=== PATIENT | male | born 1955 | race Caucasian/White ===

== ENCOUNTER 2019-02-13 20:20 | Emergency (ER) | payer MEDICAID ==
[~2019-02-13] VITALS: Ht 188 cm; Wt 108.9 kg
[2019-02-13] MEDS ORDERED: Keflex500 MG PO (21:17)
== END 2019-02-13 21:39 | disposition home or self-care (01) ==
LOC: ER 20:20
DX: S63.283A Dislocation of proximal interphalangeal joint of left middle finger, initial encounter (principal); S80.02XA Contusion of left knee, initial encounter; F17.200 Nicotine dependence, unspecified, uncomplicated; W01.0XXA Fall on same level from slipping, tripping and stumbling without subsequent striking against object, initial encounter
CPT/HCPCS: 26770; 73130; 99283-25

== ENCOUNTER 2020-07-21 11:25 | Inpatient (IN) | payer OTHER, MEDICARE ==
[~2020-07-21] VITALS: Ht 188 cm; Wt 85.0 kg
[~2020-07-21 11:25] MED LIST: Keflex500 MG PO
[2020-07-21 12:17] LABS: BASOPHILS ABSOLUTE AUTO 0.02 K/mm3 (0.00-0.23); BASOPHILS PERCENT AUTO 0 % (0-2); EOSINOPHILS ABSOLUTE AUTO 0.04 K/mm3 (0.00-0.68); EOSINOPHILS PERCENT AUTO 1 % (0-6); IMMATURE GRAN ABSOLUTE AUTO 0.03 K/mm3 (0.00-0.10); IMMATURE GRAN PERCENT AUTO 0 % (0-1); LYMPHOCYTES ABSOLUTE AUTO 1.71 K/mm3 (0.84-5.20); LYMPHOCYTES PERCENT AUTO 22 % (21-46); MONOCYTES ABSOLUTE AUTO 0.73 K/mm3 (0.16-1.47); MONOCYTES PERCENT AUTO 10 % (4-13); Mean Corpuscular HGB 25.4 pg (26.0-34.0); Mean Corpuscular HGB Conc 28.3 g/dL (31.5-36.5); Mean Corpuscular Volume 90 fL (80-100); Mean Platelet Volume 11.4 fL (9.1-12.4); NEUTROPHILS ABSOLUTE AUTO 5.17 K/mm3 (1.96-9.15); NEUTROPHILS PERCENT AUTO 67 % (41-73); Platelet Count 194 K/mm3 (150-400); RDW Coefficient Variation 15.9 % (11.7-14.2); RDW Standard Deviation 52.2 fL (35.1-46.3); Red Blood Cell Count 1.77 M/mm3 (4.30-5.90)
[2020-07-21 12:21] LABS: Hematocrit 15.9 % (37.0-53.0); Hemoglobin 4.5 g/dL (13.5-17.5)
[2020-07-21 12:36] LABS: Alanine Aminotransfer (ALT/SGP 89 U/L (12-78); Albumin, Blood 2.8 g/dL (3.4-5.0); Albumin/Globulin Ratio 0.7 (0.8-1.8); Alk Phos 112 U/L (50-136); Anion Gap 10 mmol/L (6-16); Aspartate Aminotrans (AST/SGOT 73 U/L (12-37); Bilirubin, Total 0.2 mg/dL (0.1-1.0); Blood Urea Nitrogen 23 mg/dL (8-24); Bun/Creatinine Ratio 22.3 (12.0-20.0); CO2, Blood 21 mmol/L (21-32); Calcium, Blood 8.4 mg/dL (8.5-10.1); Chloride, Blood 109 mmol/L (98-108); Creatinine, Blood 1.03 mg/dL (0.60-1.20); Globulin, Blood 3.8 g/dL (2.2-4.0); Glomerular Filtration Rate >60 (60-); Glucose, Blood 165 mg/dL (70-99); Potassium, Blood 3.9 mmol/L (3.5-5.5); Sodium, Blood 140 mmol/L (136-145); Total Protein, Blood 6.6 g/dL (6.4-8.2)
[2020-07-21 13:08] LABS: Troponin I 0.022 ng/mL (0.000-0.040)
[2020-07-21 13:09] LABS: International Normalized Ratio 0.94; Prothrombin Time Results 10.1 Sec (9.7-11.5)
[2020-07-21] MEDS ORDERED: IBUP800 PO (13:15)
[2020-07-21] MEDS ORDERED: GABA300 PO ×2 (14:52)
[2020-07-21] MEDS ORDERED: SYMBICORT 160-4.6 GM INH (16:58)
[2020-07-21 22:08] LABS: Hematocrit 18.9 % (37.0-53.0)
[2020-07-21 22:11] LABS: Hemoglobin 5.8 g/dL (13.5-17.5)
--- NOTE | 2020-07-21 22:52 | NUR ---
DR HARO called & updated on no lab orders rx after 2 units PRBC transfused. H & orders & came back critical value. DR HARO called with critical value & update on room air sat 86% & 91 % on 2 l . Records to be obtained from [facility] call placed by client project coordinator Stacy to obtain. Will transfuse 2 units PRBC has AM labs ordered per DR. HARO. PT says DR Mijares saw him in room earlier. PT continues NPO, alert pleasant.
[2020-07-21] MEDS ORDERED: FURO20 PO (23:32)
[2020-07-21] MEDS ORDERED: METF500 PO (23:34)
--- NOTE | 2020-07-22 02:47 | NUR ---
64 year old Male [employer] who is 2.5 PPD smoker for 55 years with hx of multiple lung nodules gets 21 mg nicotine patch for tobacco addiction & needs 2 l oxygen to keep sats greater than 90%. 86 % on room air 91 to 95% on 2 l NC. Uses home MDI no home oxtgen. PT has etoh dependance stated last drink 5 days prior to admission drinks 4 16 oz beers daily x many years. No s/sx of alcohol withdrawl. Admitted with suspected upper GI bleeding with last stool 4 days prior to admission & denies nausea or vomiting. H & H critically low. 4th unit of PRBC transfusing currently. After 2 units PRBC HBG 5.8 up from 4.7 around noon. HCT at 18.9. PT takes 800 mg ibuprofen BID to tidfor chronic back pain. HX of gout & ASA allergy caused increased gout flare. PT says GI consult with DR Maryana OBREGON done have not seen orders from that MD. Continues NPO for possible procedure. Continues in NS at 125 ml hr when not recieving blood products. To repeat H & H this AM half hour after transfusion complete, & AM labs. [facility] sent over records on PT who has not been seen recently records from 03/2019. PT is poor historian unable to verify current med list.
[2020-07-22 05:11] LABS: BASOPHILS ABSOLUTE AUTO 0.06 K/mm3 (0.00-0.23); BASOPHILS PERCENT AUTO 1 % (0-2); EOSINOPHILS ABSOLUTE AUTO 0.04 K/mm3 (0.00-0.68); EOSINOPHILS PERCENT AUTO 1 % (0-6); Hematocrit 22.5 % (37.0-53.0); Hemoglobin 7.2 g/dL (13.5-17.5); IMMATURE GRAN ABSOLUTE AUTO 0.02 K/mm3 (0.00-0.10); IMMATURE GRAN PERCENT AUTO 0 % (0-1); LYMPHOCYTES ABSOLUTE AUTO 1.11 K/mm3 (0.84-5.20); LYMPHOCYTES PERCENT AUTO 18 % (21-46); MONOCYTES ABSOLUTE AUTO 0.66 K/mm3 (0.16-1.47); MONOCYTES PERCENT AUTO 11 % (4-13); Mean Corpuscular HGB 27.4 pg (26.0-34.0); Mean Corpuscular Volume 86 fL (80-100); Mean Platelet Volume 11.4 fL (9.1-12.4); NEUTROPHILS ABSOLUTE AUTO 4.26 K/mm3 (1.96-9.15); NEUTROPHILS PERCENT AUTO 69 % (41-73); Platelet Count 132 K/mm3 (150-400); RDW Coefficient Variation 15.8 % (11.7-14.2); RDW Standard Deviation 49.2 fL (35.1-46.3); Red Blood Cell Count 2.63 M/mm3 (4.30-5.90); White Blood Cell Count 6.15 K/mm3 (4.00-11.30)
[2020-07-22 05:31] LABS: Albumin, Blood 2.4 g/dL (3.4-5.0); Anion Gap 5 mmol/L (6-16); Blood Urea Nitrogen 19 mg/dL (8-24); Bun/Creatinine Ratio 18.6 (12.0-20.0); CO2, Blood 24 mmol/L (21-32); Calcium, Blood 7.5 mg/dL (8.5-10.1); Chloride, Blood 111 mmol/L (98-108); Creatinine, Blood 1.02 mg/dL (0.60-1.20); Glomerular Filtration Rate >60 (60-); Glucose, Blood 113 mg/dL (70-99); Phosphorus, Blood 3.7 mg/dL (2.5-4.9); Potassium, Blood 3.7 mmol/L (3.5-5.5); Sodium, Blood 140 mmol/L (136-145)
[2020-07-22] MEDS ORDERED: EUTHYROX50 MCG (11:06)
[2020-07-22] MEDS ORDERED: SPIR25 PO (11:06)
[2020-07-22 13:29] LABS: Hematocrit 24.8 % (37.0-53.0)
--- NOTE | 2020-07-22 14:35 | NUR ---
PICKED UP BY DAY SURGERY FOR EGD AT 2091
--- NOTE | 2020-07-22 15:14 | NUR ---
07/22/20 1514 Sam King History, Chart, Medications and Allergies reviewed before start of procedure.MONITOR INTACT WITH CONTINUOUS PULSE OXIMETRY AND INTERMITTENT BP.3-LEAD EKG REVIEWED WITH PHYSICIAN PRIOR TO START OF PROCEDURE.O2 VIA N/C INTACT THROUGHOUT SEDATION/PROCEDURE. See Anesthesia record.
[2020-07-23 05:17] LABS: BASOPHILS ABSOLUTE AUTO 0.04 K/mm3 (0.00-0.23); BASOPHILS PERCENT AUTO 1 % (0-2); EOSINOPHILS ABSOLUTE AUTO 0.04 K/mm3 (0.00-0.68); EOSINOPHILS PERCENT AUTO 1 % (0-6); Hematocrit 22.8 % (37.0-53.0); Hemoglobin 7.4 g/dL (13.5-17.5); IMMATURE GRAN ABSOLUTE AUTO 0.03 K/mm3 (0.00-0.10); IMMATURE GRAN PERCENT AUTO 1 % (0-1); LYMPHOCYTES ABSOLUTE AUTO 0.88 K/mm3 (0.84-5.20); LYMPHOCYTES PERCENT AUTO 18 % (21-46); MONOCYTES ABSOLUTE AUTO 0.85 K/mm3 (0.16-1.47); MONOCYTES PERCENT AUTO 18 % (4-13); Mean Corpuscular HGB 27.7 pg (26.0-34.0); Mean Corpuscular HGB Conc 32.5 g/dL (31.5-36.5); Mean Corpuscular Volume 85 fL (80-100); NEUTROPHILS ABSOLUTE AUTO 3.01 K/mm3 (1.96-9.15); NEUTROPHILS PERCENT AUTO 62 % (41-73); Platelet Count 139 K/mm3 (150-400); RDW Coefficient Variation 16.1 % (11.7-14.2); RDW Standard Deviation 49.7 fL (35.1-46.3); Red Blood Cell Count 2.67 M/mm3 (4.30-5.90); White Blood Cell Count 4.85 K/mm3 (4.00-11.30)
[2020-07-23 05:55] LABS: Anion Gap 6 mmol/L (6-16); Blood Urea Nitrogen 10 mg/dL (8-24); Bun/Creatinine Ratio 11.5 (12.0-20.0); CO2, Blood 21 mmol/L (21-32); Calcium, Blood 7.6 mg/dL (8.5-10.1); Chloride, Blood 113 mmol/L (98-108); Creatinine, Blood 0.87 mg/dL (0.60-1.20); Glomerular Filtration Rate >60 (60-); Glucose, Blood 105 mg/dL (70-99); Potassium, Blood 3.3 mmol/L (3.5-5.5); Sodium, Blood 140 mmol/L (136-145)
[2020-07-23 12:45] LABS: Hematocrit 23.8 % (37.0-53.0)
--- NOTE | 2020-07-23 16:05 | NUR ---
PATIENT IS PLEASANT AND COOPERATIVE WITH STAFF. COMPLAINED OF PAIN TO THE BACK OF HIS NECK AND BACK ONCE WITH EFFECTIVE RESULTS FROM REQUESTED PAIN MEDICATION. VITALS HAVE BEEN STABLE. NO ACUTE CHANGES NOTED OR REPORTED AT THIS TIME. WILL CONTINUE TO MONITOR AND PROVIDE CARE NEEDED.
[2020-07-24 05:21] LABS: BASOPHILS ABSOLUTE AUTO 0.02 K/mm3 (0.00-0.23); BASOPHILS PERCENT AUTO 0 % (0-2); EOSINOPHILS ABSOLUTE AUTO 0.04 K/mm3 (0.00-0.68); EOSINOPHILS PERCENT AUTO 1 % (0-6); Hematocrit 23.4 % (37.0-53.0); Hemoglobin 7.5 g/dL (13.5-17.5); IMMATURE GRAN ABSOLUTE AUTO 0.01 K/mm3 (0.00-0.10); IMMATURE GRAN PERCENT AUTO 0 % (0-1); LYMPHOCYTES ABSOLUTE AUTO 1.18 K/mm3 (0.84-5.20); LYMPHOCYTES PERCENT AUTO 25 % (21-46); MONOCYTES ABSOLUTE AUTO 0.76 K/mm3 (0.16-1.47); MONOCYTES PERCENT AUTO 16 % (4-13); Mean Corpuscular HGB 27.6 pg (26.0-34.0); Mean Corpuscular HGB Conc 32.1 g/dL (31.5-36.5); Mean Corpuscular Volume 86 fL (80-100); Mean Platelet Volume 11.6 fL (9.1-12.4); NEUTROPHILS ABSOLUTE AUTO 2.74 K/mm3 (1.96-9.15); NEUTROPHILS PERCENT AUTO 58 % (41-73); Platelet Count 142 K/mm3 (150-400); RDW Coefficient Variation 16.2 % (11.7-14.2); RDW Standard Deviation 49.7 fL (35.1-46.3); Red Blood Cell Count 2.72 M/mm3 (4.30-5.90); White Blood Cell Count 4.75 K/mm3 (4.00-11.30)
[2020-07-24 05:33] LABS: Anion Gap 7 mmol/L (6-16); Blood Urea Nitrogen 7 mg/dL (8-24); Bun/Creatinine Ratio 8.2 (12.0-20.0); CO2, Blood 24 mmol/L (21-32); Chloride, Blood 108 mmol/L (98-108); Creatinine, Blood 0.86 mg/dL (0.60-1.20); Glomerular Filtration Rate >60 (60-); Glucose, Blood 96 mg/dL (70-99); Potassium, Blood 2.9 mmol/L (3.5-5.5); Sodium, Blood 139 mmol/L (136-145)
--- NOTE | 2020-07-24 07:27 | NUR ---
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 PT has been counseled by NSG & MD & he says he willl stop smoking cigars but no other changes planned. Continues to deny knowledge of cirrosis or lung nodules. has chronic back pain & [facility] had PT on 800 mg ibuprofen BID or TID to treat. PT's chronic back pain well controlled on 650 mg tylenol & 50 mg ultram. PT continues with very poor oral intake, alternatives offered & taken less than 50%. PT too weak to get up in room, declined out of bed this shift. Support offered to become more active with better oral intake adequate to support body requirements & safe mobility.
[2020-07-24 08:09] LABS: HBSAG SCREEN Negative (Negative); HEP B CORE AB, TOT Negative (Negative); HEP C VIRUS AB <0.1 (0.0-0.9)
[2020-07-24] MEDS ORDERED: NICO21TP TOP (09:25)
[2020-07-24] MEDS ORDERED: PANT40 PO (09:26)
[2020-07-24] MEDS ORDERED: SENN187 PO (09:26)
[2020-07-24] MEDS ORDERED: POTA10T PO (09:28)
--- NOTE | 2020-07-24 10:54 | NUR ---
DISCHARGE HOME: PT ESCORTED OUT VIA W/C BY DISCHARGE VOLUNTEER AT 1054. PIV'S REMOVED, EDUCATION PROVIDED, AND BELONGINGS SENT WITH PATIENT. [employer] WAITING TO TRANSPORT PT HOME PER PT'S REQUEST (PATIENT STATED HE HAS FUNDS TO PAY). MEDICATIONS FAXED TO [facility]. STABLE AT TIME OF DISCHARGE.
--- NOTE | 2020-07-24 10:55 | NUR ---
Initial palliative care visit: Asad is a 64 year old [employer] . He lives alone here in [place]. He has one dtr who lives in [place] who he doesn't see often. He has two sisters, one in [place] and one in [place], [place]. He doesn't have contact with his sisters very often either. He lives in an apartment on [address]. He was admitted with GI bleeding on 07/21/20. Asad reports he has a primary care doctor at the [facility]. He doesn't have a name as he states that he doesn't usually see the same doctor when he visits once a year. He reports that he has a history of back pain and gout. He states he was taking ibuprofen 800 mg TID to manage his back pain. He states that sometimes he would take "a tylenol and a beer" and that took the discomfort away. Counseled him on the use of aspirin, NSAIDS, ETOH and the risk of bleeding from the ulcer that he has. He states he is aware that he shouldn't use aspirin or iburprofen because of his stomach ulcer. He admits to drinking no more than 4 beers/day. He reports that he drinks in the morning, has lunch and than naps and doesn't drink anymore for the rest of the day. He is not interested in stopping drinking or smoking at this time. He reports that he doesn't drive. He uses dial a ride or taxis to get around. He shops for his groceries at the [employer] store across the street from his apartment and he orders foods on line. He has neighbors that check in on him from time to time. He states he doesn't use any medical euipment at home, "I have furniture I can use to get around if I need to." He reports occasional dizziness with standing. Counseled on fall risk and safety at home. He denies the need for anything at this time. He is anxious to be discharged. This visit ended abruptly as his taxi arrived and a volunteer came up to his room to take him home. He is at risk for readmission.
== END 2020-07-24 10:54 | disposition home or self-care (01) | DRG 378 ==
LOC: ER 11:25 → MEDS 11:26
PROVIDERS: Emergency Medicine; Family Medicine; Internal Medicine Gastroenterology; ADMIT Internal Medicine
PROC: 30233N1 Transfusion of Nonautologous Red Blood Cells into Peripheral Vein, Percutaneous Approach (ICD-10-PCS; principal; 2020-07-21)
PROC: 0DB68ZX Excision of Stomach, Via Natural or Artificial Opening Endoscopic, Diagnostic (ICD-10-PCS; 2020-07-22)
DX: K26.4 Chronic or unspecified duodenal ulcer with hemorrhage (principal); D62 Acute posthemorrhagic anemia; K90.9 Intestinal malabsorption, unspecified; F17.210 Nicotine dependence, cigarettes, uncomplicated; Z20.828 Contact with and (suspected) exposure to other viral communicable diseases; J44.9 Chronic obstructive pulmonary disease, unspecified; F10.10 Alcohol abuse, uncomplicated; K44.9 Diaphragmatic hernia without obstruction or gangrene; E87.6 Hypokalemia; K70.30 Alcoholic cirrhosis of liver without ascites
CPT/HCPCS: 36415; 36430; 71046; 76705; 80048; 80053; 80069; 83735; 84484; 85014; 85018; 85025; 85610; 86317; 86704; 86708; 86803; 86850; 86900; 86901; 86923; 87340; 88305; 88342; 93005; 93010; 94640; 94760; 96374; 99285-25; A9270; C9113; G0008; J2704; J7030; J7120; P9016; Q2038; U0004

== ENCOUNTER 2021-09-08 13:50 | Emergency (ER) | payer OTHER, MEDICARE ==
[~2021-09-08] VITALS: Ht 182.9 cm; Wt 79.4 kg
[~2021-09-08 13:50] MED LIST changes: +EUTHYROX50 MCG; +FURO20 PO; +GABA300 PO; +IBUP800 PO; +METF500 PO; +NICO21TP TOP; +PANT40 PO; +POTA10T PO; +SENN187 PO; +SPIR25 PO; +SYMBICORT 160-4.6 GM INH
== END 2021-09-08 15:41 | disposition home or self-care (01) ==
LOC: ER 13:50
DX: S06.9X9A Unspecified intracranial injury with loss of consciousness of unspecified duration, initial encounter (principal); S00.83XA Contusion of other part of head, initial encounter; S51.812A Laceration without foreign body of left forearm, initial encounter; F10.129 Alcohol abuse with intoxication, unspecified; Y90.6 Blood alcohol level of 120-199 mg/100 ml; I10 Essential (primary) hypertension; J44.9 Chronic obstructive pulmonary disease, unspecified; F17.210 Nicotine dependence, cigarettes, uncomplicated; W19.XXXA Unspecified fall, initial encounter
CPT/HCPCS: 36415; 70450; 72125; 99284-25; G0480

== ENCOUNTER 2022-01-12 17:52 | Inpatient (IN) | payer OTHER ==
[~2022-01-12] VITALS: Ht 188 cm; Wt 78.9 kg
[2022-01-12 18:23] LABS: BASOPHILS ABSOLUTE AUTO 0.02 K/mm3 (0.00-0.23); BASOPHILS PERCENT AUTO 0 % (0-2); EOSINOPHILS ABSOLUTE AUTO 0.03 K/mm3 (0.00-0.68); EOSINOPHILS PERCENT AUTO 0 % (0-6); Hematocrit 27.7 % (37.0-53.0); Hemoglobin 7.8 g/dL (13.5-17.5); IMMATURE GRAN ABSOLUTE AUTO 0.09 K/mm3 (0.00-0.10); IMMATURE GRAN PERCENT AUTO 1 % (0-1); LYMPHOCYTES ABSOLUTE AUTO 0.63 K/mm3 (0.84-5.20); LYMPHOCYTES PERCENT AUTO 5 % (21-46); MONOCYTES PERCENT AUTO 5 % (4-13); Mean Corpuscular HGB 25.2 pg (26.0-34.0); Mean Corpuscular HGB Conc 28.2 g/dL (31.5-36.5); Mean Corpuscular Volume 90 fL (80-100); Mean Platelet Volume 11.6 fL (9.1-12.4); NEUTROPHILS ABSOLUTE AUTO 10.96 K/mm3 (1.96-9.15); NEUTROPHILS PERCENT AUTO 89 % (41-73); Platelet Count 280 K/mm3 (150-400); RDW Coefficient Variation 20.5 % (11.7-14.2); RDW Standard Deviation 66.6 fL (35.1-46.3); Red Blood Cell Count 3.09 M/mm3 (4.30-5.90); White Blood Cell Count 12.33 K/mm3 (4.00-11.30)
[2022-01-12 18:32] LABS: Alanine Aminotransfer (ALT/SGP 114 U/L (12-78); Albumin, Blood 1.7 g/dL (3.4-5.0); Albumin/Globulin Ratio 0.3 (0.8-1.8); Alk Phos 332 U/L (50-136); Anion Gap 9 mmol/L (6-16); Aspartate Aminotrans (AST/SGOT 115 U/L (12-37); Bilirubin, Total 0.5 mg/dL (0.1-1.0); Blood Urea Nitrogen 13 mg/dL (8-24); Bun/Creatinine Ratio 17.5 (12.0-20.0); CO2, Blood 24 mmol/L (21-32); Calcium, Blood 8.2 mg/dL (8.5-10.1); Chloride, Blood 100 mmol/L (98-108); Creatinine, Blood 0.74 mg/dL (0.60-1.20); Globulin, Blood 5.9 g/dL (2.2-4.0); Glomerular Filtration Rate >60 (60-); Glucose, Blood 97 mg/dL (70-99); Potassium, Blood 4.5 mmol/L (3.5-5.5); Sodium, Blood 133 mmol/L (136-145); Total Protein, Blood 7.6 g/dL (6.4-8.2)
[2022-01-12 19:44] LABS: Magnesium, Blood 1.8 mg/dL (1.6-2.4); Thyroid Stimulating Hormone 24.9 uIU/mL (0.360-4.800)
[2022-01-12 20:17] LABS: Base Excess Venous 2.9 mmol/L; Bicarbonate Venous 26.3 mmol/L (24.0-30.0); PCO2 Venous 44.5 mmHg (38-42); PO2 Venous 35.2 mmHg (38-42)
[2022-01-12 20:59] LABS: Free Thyroxine 0.64 ng/dL (0.70-1.60); Triiodothyronine, Free 1.22 pg/mL (2.18-3.98)
[2022-01-12] MEDS ORDERED: GABA300 PO (22:24)
[2022-01-13 00:55] LABS: BASOPHILS ABSOLUTE AUTO 0.03 K/mm3 (0.00-0.23); BASOPHILS PERCENT AUTO 0 % (0-2); EOSINOPHILS ABSOLUTE AUTO 0.02 K/mm3 (0.00-0.68); EOSINOPHILS PERCENT AUTO 0 % (0-6); Hematocrit 23.2 % (37.0-53.0); Hemoglobin 6.6 g/dL (13.5-17.5); IMMATURE GRAN ABSOLUTE AUTO 0.08 K/mm3 (0.00-0.10); IMMATURE GRAN PERCENT AUTO 1 % (0-1); LYMPHOCYTES ABSOLUTE AUTO 0.57 K/mm3 (0.84-5.20); LYMPHOCYTES PERCENT AUTO 5 % (21-46); MONOCYTES ABSOLUTE AUTO 0.64 K/mm3 (0.16-1.47); MONOCYTES PERCENT AUTO 6 % (4-13); Mean Corpuscular HGB 25.4 pg (26.0-34.0); Mean Corpuscular HGB Conc 28.4 g/dL (31.5-36.5); Mean Corpuscular Volume 89 fL (80-100); Mean Platelet Volume 11.1 fL (9.1-12.4); NEUTROPHILS ABSOLUTE AUTO 9.44 K/mm3 (1.96-9.15); NEUTROPHILS PERCENT AUTO 88 % (41-73); Platelet Count 239 K/mm3 (150-400); RDW Coefficient Variation 20.5 % (11.7-14.2); RDW Standard Deviation 65.5 fL (35.1-46.3); White Blood Cell Count 10.78 K/mm3 (4.00-11.30)
[2022-01-13 01:22] LABS: Alanine Aminotransfer (ALT/SGP 86 U/L (12-78); Albumin, Blood 1.6 g/dL (3.4-5.0); Albumin/Globulin Ratio 0.3 (0.8-1.8); Alk Phos 272 U/L (50-136); Anion Gap 6 mmol/L (6-16); Aspartate Aminotrans (AST/SGOT 66 U/L (12-37); Bilirubin, Total 0.4 mg/dL (0.1-1.0); Blood Urea Nitrogen 12 mg/dL (8-24); Bun/Creatinine Ratio 15.1 (12.0-20.0); CO2, Blood 26 mmol/L (21-32); Calcium, Blood 7.4 mg/dL (8.5-10.1); Chloride, Blood 104 mmol/L (98-108); Creatinine, Blood 0.79 mg/dL (0.60-1.20); Glomerular Filtration Rate >60 (60-); Glucose, Blood 113 mg/dL (70-99); Lactate Dehydrogenase (Ld),Bld 209 U/L (100-240); Sodium, Blood 136 mmol/L (136-145); Total Protein, Blood 6.6 g/dL (6.4-8.2)
--- NOTE | 2022-01-13 05:34 | NUR ---
SHIFT SUMMARY: ASSUMED CARE OF PATIENT AT 2347. PATIENT TRANSFERRED VIA GURNEY WITH 3 STAFF ASSIST. PATIENT A&O X4, PLEASANT AND COOPERATIVE WITH CARE, VSS ON 3L NC. HR <105 SINCE ADMISSION - CARDIZEM DRIP ON STANDBY. NS RUNNING PER EMAR AND PATIENT NPO. PATIENT'S HGB DROPPED FROM 7.8 TO 6.6 THIS AM. PATIENT SIGNED BLOOD CONSENT. PATIENT SCHEDULED FOR PARACENTESIS AND LOWER VENOUS DUPLEX ON 01/13. ADMISSION COMPLETE. WILL CONTINUE TO MONITOR AND REPORT TO ONCOMING RN.
--- NOTE | 2022-01-13 08:09 | NUR ---
WHEEZES NOTED T/O LUNG MILLER PRIOR TO BLOOD TRANFUSION BEGINING
[2022-01-13 08:11] LABS: International Normalized Ratio 1.15
--- NOTE | 2022-01-13 08:27 | NUR ---
NO CHANGE IN LS, RT TO ROOM TO ADMINISTER MORNING BREATHING TREATEMENTS. AFEBRILE, VSS.
[2022-01-13 11:20] LABS: Automated BF RBC Count 0.008 M/mm3 (0-0); RBC Count, Body Fluid 8000 /mm3 (0-0)
[2022-01-13 11:52] LABS: Body Fluid WBC Count 19314 /mm3 (0-999)
[2022-01-13 12:03] LABS: Albumin, Body Fluid 1.3 g/dL; Glucose, Body Fluid <1 mg/dL; Lactate Dehydrogenase, Body Fl 1391 U/L; Protein, Body Fluid 4.1 g/dL
[2022-01-13 12:11] LABS: Appearance, Body Fluid Cloudy (Clear); Color, Body Fluid Yellow (None-Yellow); Total Cell Count, Body Fluid 100
[2022-01-13 12:17] LABS: Automated BF WBC Count 19.314 K/mm3 (0-999)
[2022-01-13 16:29] LABS: Hematocrit 27.7 % (37.0-53.0); Hemoglobin 7.8 g/dL (13.5-17.5)
--- NOTE | 2022-01-13 16:56 | NUR ---
SHIFT NOTE PT RECIEVED 1UNIT OF PRBC THIS AM WHICH WAS TOLERATED WELL. PT HAD VENOUS DOPPLER OF LOWER EXTREMETIES WHICH WAS NEGATIVE FOR DVT. PT THEN WENT FOR THORACENTESIS WITH 750ML OFF RT LUNG, POST PROCEDURE XRAY REVEALED THAT PLEURAL EFFUSION REMAINS TO RT LUNG. LS REMAIN DIM WITH RUB NOTED TO RT UPPER AND LOWER LOBES. PT BEGAN THIS SHIFT WITH COARSE WHEEZES NOTED T/O LUNG MILLER WHICH IMPROVED WITH BREATHING TX THIS AM. PT REPORTS THAT HE IS FEELING BETTER THIS EVENING. VSS. DNEIES CP, REPORTS IMPROVEMENT OF SOB.
[2022-01-14 04:44] LABS: BASOPHILS ABSOLUTE AUTO 0.01 K/mm3 (0.00-0.23); BASOPHILS PERCENT AUTO 0 % (0-2); EOSINOPHILS ABSOLUTE AUTO 0.05 K/mm3 (0.00-0.68); EOSINOPHILS PERCENT AUTO 1 % (0-6); Hematocrit 25.2 % (37.0-53.0); Hemoglobin 7.3 g/dL (13.5-17.5); IMMATURE GRAN ABSOLUTE AUTO 0.04 K/mm3 (0.00-0.10); IMMATURE GRAN PERCENT AUTO 1 % (0-1); LYMPHOCYTES ABSOLUTE AUTO 0.66 K/mm3 (0.84-5.20); LYMPHOCYTES PERCENT AUTO 11 % (21-46); MONOCYTES ABSOLUTE AUTO 0.35 K/mm3 (0.16-1.47); MONOCYTES PERCENT AUTO 6 % (4-13); Mean Corpuscular HGB 26.1 pg (26.0-34.0); Mean Corpuscular Volume 90 fL (80-100); Mean Platelet Volume 11.2 fL (9.1-12.4); NEUTROPHILS ABSOLUTE AUTO 5.07 K/mm3 (1.96-9.15); NEUTROPHILS PERCENT AUTO 82 % (41-73); Platelet Count 198 K/mm3 (150-400); RDW Coefficient Variation 19.2 % (11.7-14.2); RDW Standard Deviation 63.3 fL (35.1-46.3); White Blood Cell Count 6.18 K/mm3 (4.00-11.30)
[2022-01-14 05:01] LABS: Alanine Aminotransfer (ALT/SGP 58 U/L (12-78); Albumin, Blood 1.4 g/dL (3.4-5.0); Albumin/Globulin Ratio 0.3 (0.8-1.8); Alk Phos 216 U/L (50-136); Anion Gap 8 mmol/L (6-16); Aspartate Aminotrans (AST/SGOT 34 U/L (12-37); Bilirubin, Total 0.4 mg/dL (0.1-1.0); Blood Urea Nitrogen 9 mg/dL (8-24); Bun/Creatinine Ratio 12.9 (12.0-20.0); CO2, Blood 24 mmol/L (21-32); Calcium, Blood 7.6 mg/dL (8.5-10.1); Chloride, Blood 108 mmol/L (98-108); Globulin, Blood 4.2 g/dL (2.2-4.0); Glomerular Filtration Rate >60 (60-); Glucose, Blood 95 mg/dL (70-99); Magnesium, Blood 1.8 mg/dL (1.6-2.4); Potassium, Blood 3.4 mmol/L (3.5-5.5); Sodium, Blood 140 mmol/L (136-145); Total Protein, Blood 5.6 g/dL (6.4-8.2)
--- NOTE | 2022-01-14 06:28 | NUR ---
SHIFT SUMMARY: PATIENT MAINTAINED O2 SATS >90% ON 3-4L NC, HR 90-100S, NORMAL BPS. PATIENT PLEASANT AND COOPERATIVE WITH CARE, USES CALL LIGHT APPROPRIATELY, AND USES URINAL AT BEDSIDE. NPO SINCE MIDNIGHT THOUGH MD NOTE STATES BREAKFAST AND THEN NPO STATUS. NO ADVERSE EVENTS THIS SHIFT. WILL CONTINUE TO MONITOR AND REPORT TO ONCOMING RN.
--- NOTE | 2022-01-14 13:22 | NUR ---
Spiritual care visit conducted. Patient is lying in bed and alert. Patient immediately tells me about his struggles with depression and addiction. Between jokes pt is raw and real about his emotional pain. He shares his fears and hopes going forward. I normalize his struggles, reinforce helpful perspectives, explore spiritual beliefs, encourage self-care and provide therapeutic listening, gentle counselor marriage and family, and prayer. Pt states that the visit and the prayer gave him a "much needed boost" emotionally/spiritually. I will continue to remain available to patient and family.
--- NOTE | 2022-01-14 17:14 | NUR ---
SHIFT SUMMARY PT IS A/Ox3 AND IS PLEASANT/COOPERATIVE WITH STAFF. PT OXYGEN WAS TITRATED DOWN TO 2 L VIA NC WHILE MAINTAINING SPO2 >92%. PT LS SEEMED TO IMPROVED, BUT STILL WAS SOB WITH AMBULATION. BRONCHOSCOPY WAS RESCHEDULED TO 01/[address] MORALEZ's ORDERS. PT WAS VISTED WITH PT/OT TODAY AND WAS ABLE TO AMBULATE TO THE BATHROOM WITH ASSISTANCE. NADN T/O THE SHIFT. VSS
[2022-01-15 03:56] LABS: BASOPHILS ABSOLUTE AUTO 0.01 K/mm3 (0.00-0.23); BASOPHILS PERCENT AUTO 0 % (0-2); EOSINOPHILS ABSOLUTE AUTO 0.06 K/mm3 (0.00-0.68); EOSINOPHILS PERCENT AUTO 1 % (0-6); Hematocrit 24.3 % (37.0-53.0); IMMATURE GRAN ABSOLUTE AUTO 0.03 K/mm3 (0.00-0.10); IMMATURE GRAN PERCENT AUTO 1 % (0-1); LYMPHOCYTES ABSOLUTE AUTO 0.69 K/mm3 (0.84-5.20); LYMPHOCYTES PERCENT AUTO 13 % (21-46); MONOCYTES PERCENT AUTO 7 % (4-13); Mean Corpuscular HGB Conc 28.8 g/dL (31.5-36.5); Mean Corpuscular Volume 90 fL (80-100); Mean Platelet Volume 11.5 fL (9.1-12.4); NEUTROPHILS ABSOLUTE AUTO 4.35 K/mm3 (1.96-9.15); NEUTROPHILS PERCENT AUTO 79 % (41-73); Platelet Count 208 K/mm3 (150-400); RDW Coefficient Variation 19.4 % (11.7-14.2); RDW Standard Deviation 63.8 fL (35.1-46.3); Red Blood Cell Count 2.69 M/mm3 (4.30-5.90); White Blood Cell Count 5.54 K/mm3 (4.00-11.30)
[2022-01-15 04:16] LABS: Anion Gap 6 mmol/L (6-16); Blood Urea Nitrogen 8 mg/dL (8-24); Bun/Creatinine Ratio 10.2 (12.0-20.0); CO2, Blood 27 mmol/L (21-32); Calcium, Blood 7.5 mg/dL (8.5-10.1); Chloride, Blood 108 mmol/L (98-108); Creatinine, Blood 0.79 mg/dL (0.60-1.20); Glomerular Filtration Rate >60 (60-); Glucose, Blood 100 mg/dL (70-99); Potassium, Blood 3.3 mmol/L (3.5-5.5); Sodium, Blood 141 mmol/L (136-145)
[2022-01-15 06:01] LABS: Magnesium, Blood 1.9 mg/dL (1.6-2.4); Phosphorus, Blood 3.2 mg/dL (2.5-4.9)
--- NOTE | 2022-01-15 06:11 | NUR ---
SHIFT SUMMARY A&O X4 WITH OCCASIONAL CONFUSION ABOUT TIME. CALM AND COOPERATIVE WITH CARE. ANSWERS QUESTIONS APPROPRIATELY AND FOLLOWS COMMANDS. USES CALL LIGHT APPROPRIATELY. PATIENT HAS BEEN NPO SINCE MIDNIGHT FOR BRONCHOSCOPY THIS AM. NO ACUTE EVENTS DURING THE SHIFT. TELE SHOWING WANDERING ATRIAL PACEMAKER WITH HR 90-100S. O2 SATS 95% ON 3.5L. SBP 120-140S. DENIES ALL PAIN. LW/KIMBERLY IV SITES BOTH WNL AND FLUSH WELL. ALESIA POWERGLIDE FLUSHES AND DRAWS WELL WITH CAPS BEING CHANGED TODAY 01/15/22. PATIENT IS CONTINENT OR B/B. CALL LIGHT WITHIN REACH AND BED IN LOWEST POSITION. WILL CONTINUE TO MONITOR FOR CHANGES.
--- NOTE | 2022-01-15 06:56 | NUR ---
THIS RN HAS REVIEWED THE STUDENT RN'S CHARTING AND ASSESMENTS AND AGREE WITH ALL THAT IS CHARTED.
[2022-01-15 07:34] LABS: Influenza A, PCR NEGATIVE (NEGATIVE); Influenza B, PCR NEGATIVE (NEGATIVE); Resp Syncytial Virus, PCR NEGATIVE (NEGATIVE); SARS-Cov-2 (COVID-19) PCR, MMC NEGATIVE (NEGATIVE)
--- NOTE | 2022-01-15 09:59 | NUR ---
01/15/22 0959 Audrey Hernandez HISTORY,CHART, MEDICATIONS AND ALLERGIES REVIEWED BEFORE START OF PROCEDURE. PATIENT CONFIRMS NPO STATUS AND AGREES WITH SCHEDULED PROCEDURE. 3-LEAD EKG REVIEWED WITH PHYSICIAN PRIOR TO START OF PROCEDURE. MONITOR INTACT WITH CONTINUOUS PULSE OXIMETRY AND INTERMITTENT BP. SUPPLEMENTAL O2 TO BE TITRATED THROUGHOUT PROCEDURE TO MAINTAIN O2 SATURATION ABOVE 90%. PATIENT DETERMINED TO BE ASA APPROPRIATE FOR MODERATE SEDATION PRIOR TO START OF PROCEDURE BY .
--- NOTE | 2022-01-15 10:35 | NUR ---
PT RETURNED FROM BRONCHOSCOPY @ 0025. VSS. MACE
--- NOTE | 2022-01-15 15:42 | NUR ---
REPORT CALLED TO PAOLO ON MEDICAL FLOOR. PT WILL TRANSFER TO MEDICAL FLOOR W/O FLUISD INFUSING AND WITH ALL BELONGINGS
--- NOTE | 2022-01-15 18:10 | NUR ---
SHIFT SUMMARY PATIENT ALERT AND ORIENTED. SPO2 REMAINS >90% ON 4L NC, HR REMAINS 90'S-100'S. PATIENT 1 PERSON ASSIST TO BEDSIDE COMMODE. STILL AWAITING BM FOR STOOL SAMPLE. PATIENT DENIES PAIN. NO ACUTE CHANGES DURING SHIFT. PATIENT USING CALL LIGHT APPROPRIATELY. WILL CONTINUE TO MONITOR.
[2022-01-16 06:14] LABS: BASOPHILS ABSOLUTE AUTO 0.02 K/mm3 (0.00-0.23); BASOPHILS PERCENT AUTO 0 % (0-2); EOSINOPHILS ABSOLUTE AUTO 0.07 K/mm3 (0.00-0.68); EOSINOPHILS PERCENT AUTO 1 % (0-6); Hematocrit 27.3 % (37.0-53.0); Hemoglobin 7.5 g/dL (13.5-17.5); IMMATURE GRAN ABSOLUTE AUTO 0.03 K/mm3 (0.00-0.10); IMMATURE GRAN PERCENT AUTO 1 % (0-1); LYMPHOCYTES ABSOLUTE AUTO 0.56 K/mm3 (0.84-5.20); LYMPHOCYTES PERCENT AUTO 11 % (21-46); MONOCYTES ABSOLUTE AUTO 0.37 K/mm3 (0.16-1.47); MONOCYTES PERCENT AUTO 7 % (4-13); Mean Corpuscular HGB 25.3 pg (26.0-34.0); Mean Corpuscular HGB Conc 27.5 g/dL (31.5-36.5); Mean Corpuscular Volume 92 fL (80-100); Mean Platelet Volume 11.8 fL (9.1-12.4); NEUTROPHILS ABSOLUTE AUTO 4.23 K/mm3 (1.96-9.15); NEUTROPHILS PERCENT AUTO 80 % (41-73); Platelet Count 206 K/mm3 (150-400); RDW Coefficient Variation 19.5 % (11.7-14.2); RDW Standard Deviation 64.9 fL (35.1-46.3); Red Blood Cell Count 2.96 M/mm3 (4.30-5.90); White Blood Cell Count 5.28 K/mm3 (4.00-11.30)
--- NOTE | 2022-01-16 06:33 | NUR ---
SHIFT SUMMARY PT IS A 66 Y/O MALE, ADMITTED FOR MALIGNANT PLEURAL EFFUSION. HE IS A&O X 4, [place] [facility] [place] CURRENTLY ON 4L VIA NC, SATTING > 90%. DESATS WITH EXERTION. TELE SHOWED NSR C PAC AND PVCS @ 90. VITAL SIGNS OTHERWISE STABLE. NO ACUTE CHANGES IN PT CONDITION NOTED DURING THE NIGHT. WILL CONTINUE TO MONITOR AND TREAT PER EMAR UNTIL HAND OFF TO DAY SHIFT RN.
[2022-01-16 06:53] LABS: Anion Gap 4 mmol/L (6-16); Blood Urea Nitrogen 9 mg/dL (8-24); Bun/Creatinine Ratio 11.3 (12.0-20.0); CO2, Blood 27 mmol/L (21-32); Calcium, Blood 7.7 mg/dL (8.5-10.1); Chloride, Blood 108 mmol/L (98-108); Creatinine, Blood 0.79 mg/dL (0.60-1.20); Glomerular Filtration Rate >60 (60-); Glucose, Blood 89 mg/dL (70-99); Potassium, Blood 3.6 mmol/L (3.5-5.5); Sodium, Blood 139 mmol/L (136-145)
[2022-01-16 12:51] LABS: Stool Occult Blood Guaiac 1 Neg (Neg)
--- NOTE | 2022-01-17 04:39 | NUR ---
SHIFT SUMMARY PT IS A 66 Y/O MALE, ADMITTED FOR MALIGNANT PLEURAL EFFUSION. HE IS A&O X 4, [place] [facility] [place] TELE SHOWED NSR C PAC AND PVC @ 83. CURRENTLY ON 4L VIA NC, SATTING > 90%. VITAL SIGNS OTHERWISE STABLE. NO C/O ACUTE PAIN OR NAUSEA. PT DOES REPORT DYSPNEA WITH EXERTION. NO ACUTE CHANGES IN PT CONDITION NOTED DURING THE NIGHT. WILL CONTINUE TO MONITOR AND TREAT PER EMAR UNTIL HAND OFF TO DAY SHIFT RN.
--- NOTE | 2022-01-17 17:17 | NUR ---
SHIFT SUMMARY: NO ACUTE EVENTS. C/O NECK PAIN THIS MORNING, TYLENOL WITH RELIEF. NO EVENTS ON TELEMETRY, SR 60-80'S. O2 @ 4 L/MIN NC, BREATH SOUNDS WITH EXP WHEEZES. TOLERATING PO INTAKE. DECLINED BATH/SHOWER AND ORAL CARE ALL DAY. NAPPED INTERMITTENTLY.
--- NOTE | 2022-01-18 05:02 | NUR ---
SHIFT SUMMARY PT IS A 66 Y/O MALE, ADMITTED FOR MALIGNANT PLEURAL EFFUSION. HE IS A&O X 4, [place] [facility] [place] TELE SHOWED NSR C PACS IN THE 80S. CURRENTLY ON 4L VIA NC, SATTING > 90%. VITAL SIGNS OTHERWISE STABLE. NO C/O ACUTE PAIN, NAUSEA OR SOB. NO OTHER ACUTE CHANGES IN PT CONDITION NOTED. WILL CONTINUE TO MONITOR AND TREAT PER EMAR UNTIL HAND OFF TO DAY SHIFT RN.
--- NOTE | 2022-01-18 08:30 | NUR ---
ASSUMED CARE OF PT- BEDSIDE REPORT COMPLETED WITH NIGHT RN. PT ALERT AND IN GOOD SPIRITS LAUGHING AND TALKING WITH STAFF IN REPORT. ON MORNING ASSESSMENT IT WAS NOTED THAT THE PT HAD THICK WWHITE PATCHES T/O HIS MOUTH (TOUNG/CHEEKS/THROAT). WHEN ASKED THE PT STATES HE HAS A SLIGHT SORE THROAT BUT THE ROOF OF HIS MOUTH HURTS "IT FEELS LIKE IT IS PEELING." WILL SPEAK TO DR ON MORNING ROUNDS ABOUT ADDING THRUSH Tx.
--- NOTE | 2022-01-18 19:32 | NUR ---
SHIFT SUMMARY- PT HAD NO ACUTE CHANGES T/O THE SHIFT. PT C/O HEADACHE ONCE MEDICATED WITH TYLENOL, PT STATED THE TYLENOL TOOK CARE OF THE HEADACHE. PT ALERT AND ORIENTED 1PA TO THE BEDSIDE COMMODE D/T ACTIVITY INTOLLERANCE. PT WALKED INTO THE BATHROOM EARLIER TODAY AND WAS PERFORMING ORAL CARE FOR HIMSELF, HE BECAME SOB AND WALKED BACK TO BED PER TELE HIS HR AT THIS TIME HAD TOUCHED UP TO 150'S. PT HR WENT BACK DOWN TO THE 90'S AFTER A MINUTE OF REST. PT NOTED ON MORNING ASSESSMENT TO HAVE WHITE PATCHES IN HIS MOUTH SPOKE TO DR PISANO AND RECIEVED ORDER FOR CLOTRIMITIZOLE LOZENGE. PT CURRENTLY IN BED, CALL LIGHT IN REACH NO S&S OF DISTRESS, BEDSIDE REPORT COMPLETED.
--- NOTE | 2022-01-19 06:23 | NUR ---
PT with new diagnosis lung cancer & malignant pleural effusion continues on 4 l nc for hypoxia. He is cheerful & verbalizes he has smoked for many years. Has oncology referral. Med with tylenol 650 mg po x 2 for CO pain with helpful effect.
--- NOTE | 2022-01-19 09:59 | NUR ---
AM NOTE PATIENT IS PLEASANT, COOPERATIVE W CARE, A&OX4. DENIES CP/PRESSURE, SOB, N/V/D. TELE NSR 80S W PACS. SPO2>90% ON 4L O2 NC WITH HUMIDIFICATION. USING URINAL AT BEDSIDE. PLAN TO COMPLETE IMAGING TODAY. WILL CONTINUE TO MONITOR T/O SHIFT.
[2022-01-19 12:44] LABS: Percent Saturation 8.4 % (20.0-50.0)
--- NOTE | 2022-01-19 13:37 | NUR ---
APPOINTMENT AT CANCER CENTER SCHEDULED [facility] WHEELCHAIR TRANSPORT SCHEDULED FOR [address]PER[address] IN ROOM THEN RETURN BACK TO ROOM ON MEDICAL FLOOR. APPOINTMENT ESTIMATED TO TAKE ONE HOUR.
--- NOTE | 2022-01-19 18:14 | NUR ---
SHIFT SUMMARY PATIENT REMAINED A&OX4, PLEASANT AND COOPERATIVE WITH CARE. NO MORE TELE, SPO2>95% ON 4L O2 NC WITH HUMIDIFICATION. DENIES CP/PRESSURE, SOB, N/V, NUMBNESS/TINGLING. PATIENT DOES HAVE DIFFICULTY BREATHING AT TIMES AND PRODUCTIVE COUGH. DR SMALLWOOD CONSULTED THIS AFTERNOON, PLAN TO FURTHER WORK-UP. NO ACUTE CHANGES T/O SHIFT. WILL CONTINUE TO MONITOR UNTIL REPORT GIVEN TO ONCOMING SHIFT.
--- NOTE | 2022-01-19 18:21 | NUR ---
I am in agreement with the nursing students documentation. Pt alert, oriented t/o shift. Dr Barreto at bedside this am. Radiation simulation appointment scheduled for tomorrow am, hot die picker at 0700. No acute s/sx of distress noted. Will continue to monitor until report given to oncoming rn.
--- NOTE | 2022-01-20 07:04 | NUR ---
SHIFT SUMMARY: PATIENT REPORTS PAIN NECK AND BACK, TYLENOL IS EFFECT FOR PAIN CONTROL. MELATONIN WAS REQUESTED FOR INSOMNIA, MED WAS GIVEN WITH GOOD EFFECT. PATIENT IS AWAKE EARLY THIS AM. LIGHT BREAKFAST WAS GIVEN AND AM HYGIENE WAS OFFERED AND 02 TANKS ARE IN ROOM AWAITING TRANSPORT TO HAVE INITIAL APPOINTMENT WITH RADIOLOGY FOR MARKINGS.
[2022-01-20] MEDS ORDERED: LEVSOD75 PO (15:31)
[2022-01-20] MEDS ORDERED: SPIRIVA RESPIMAT4 G3 INH (15:32)
--- NOTE | 2022-01-20 16:49 | NUR ---
CALLED DR PISANO FOR HOME O2 EVAL AFTER PT HAD DC ORDERS, THE PT HAD CONVEYED THAT HE HAD NO O2 SUPPLIES AT HOME AT ALL; HOWEVER HE COMMUNICATED THE OPPOSITE WITH . PT ALSO DOES NOT HAVE A NEBULIZER MACHINE AND HAS BEEN RECIEVING QID Tx. DR ELLER NO NEB ORDERED NOT NEEDED PT QUALIFIED FOR HOME O2 O2 ORDERED AND WILL BE DELIVERED SOON. PT HAS DIFFICULTY WITH STAIRS DR ELLER, PT HAS STAIRS LEADING INTO HIS HOME. THIS RN INSISTED THE PT CALL A FRIEND TO BE THERE WITH HIM WHEN HE ARRIVES HOME TO HELP HIM UP THE STAIRS. PT CALLED HIS FRIEND.
--- NOTE | 2022-01-20 17:53 | NUR ---
DISCHARGE NOTE- PT IV'S DC'D PRIOR TO DISCHARGE, SKIN VERY FRAGILE AND TORE A BIT AT THE START OF THE DRESSING REMOVAL, PAPER STACKER ASSISTED AND THE PG WAS REMOVED USING A SALINE SOAK, TWO SMALL SKIN TEARS WERE CLEANED AND DRESSED WITH NON ADHERENT DRESSING.
== END 2022-01-20 19:22 | disposition home or self-care (01) | DRG 166 ==
LOC: ER 17:52 → PCU 22:30 → MEDS 22:30 → ER 23:40 → PCU 23:59 → MEDS 01-15 16:03 → ENPENDDIS 01-20 15:47 → MEDS 01-20 19:22
PROVIDERS: Family Medicine; Internal Medicine; Internal Medicine Critical Care Medicine; Student in an Organized Health Care Education/Training Program; ADMIT Internal Medicine
PROC: 0BBD8ZX Excision of Right Middle Lung Lobe, Via Natural or Artificial Opening Endoscopic, Diagnostic (ICD-10-PCS; 2022-01-13)
PROC: 0W9930Z Drainage of Right Pleural Cavity with Drainage Device, Percutaneous Approach (ICD-10-PCS; principal; 2022-01-15 07:30)
DX: C34.2 Malignant neoplasm of middle lobe, bronchus or lung (principal); J96.01 Acute respiratory failure with hypoxia; J18.9 Pneumonia, unspecified organism; E43 Unspecified severe protein-calorie malnutrition; J91.0 Malignant pleural effusion; Z66 Do not resuscitate; E87.1 Hypo-osmolality and hyponatremia; C79.71 Secondary malignant neoplasm of right adrenal gland; C34.31 Malignant neoplasm of lower lobe, right bronchus or lung; R64 Cachexia; Z20.822 Contact with and (suspected) exposure to COVID-19; I48.91 Unspecified atrial fibrillation; R63.0 Anorexia; K70.30 Alcoholic cirrhosis of liver without ascites; R59.0 Localized enlarged lymph nodes; Z68.28 Body mass index [BMI] 28.0-28.9, adult; R74.01 Elevation of levels of liver transaminase levels; D50.9 Iron deficiency anemia, unspecified; R60.0 Localized edema; D53.9 Nutritional anemia, unspecified; M54.9 Dorsalgia, unspecified; F10.10 Alcohol abuse, uncomplicated; E03.9 Hypothyroidism, unspecified; G89.29 Other chronic pain; J44.9 Chronic obstructive pulmonary disease, unspecified; F17.210 Nicotine dependence, cigarettes, uncomplicated; Z79.899 Other long term (current) drug therapy; Z88.6 Allergy status to analgesic agent
CPT/HCPCS: 0241U; 32555; 36415; 36430; 70553; 71045; 71260; 74177; 76705; 80048; 80053; 82042; 82272; 82728; 82803; 82945; 83540; 83550; 83615; 83735; 83880; 84100; 84155; 84157; 84439; 84443; 84481; 84484; 85014; 85018; 85025; 85610; 85730; 86850; 86900; 86901; 86923; 87040; 87070; 87077; 87186; 87205; 88108; 88173; 88305; 88341; 88342; 89051; 93005; 93010; 93970; 94640; 94664; 94760; 94761; 94762; 96374; 96375; 97110; 97116; 97162; 97166; 97530; 97535; 99285-25; A9270; A9579; C9113; J0171; J0456; J0696; J2250; J3010; J3480; J7030; J7040; J7060; J7120; P9016; Q9967